=== PATIENT | female | born 1950 | race Caucasian/White ===

== ENCOUNTER → 2017-06-11 | Outpatient (CLI) | payer OTHER | LOC: M.RAD 12:27 | DX: Z12.31 Encounter for screening mammogram for malignant neoplasm of breast (principal) ==

== ENCOUNTER → 2018-04-28 | Outpatient (CLI) | payer MEDICARE, OTHER | LOC: M.RAD 10:50 | DX: S22.9XXD Fracture of bony thorax, part unspecified, subsequent encounter for fracture with routine healing (principal); M43.24 Fusion of spine, thoracic region; X58.XXXD Exposure to other specified factors, subsequent encounter ==

== ENCOUNTER → 2018-06-12 | Outpatient (CLI) | payer MEDICARE, BC | LOC: M.RAD 12:38 | DX: Z12.31 Encounter for screening mammogram for malignant neoplasm of breast (principal) ==

== ENCOUNTER → 2019-06-18 | Outpatient (CLI) | payer MEDICARE, OTHER | LOC: M.RAD 09:18 | DX: Z12.31 Encounter for screening mammogram for malignant neoplasm of breast (principal) ==

== ENCOUNTER → 2020-07-04 | Outpatient (CLI) | payer MEDICARE, OTHER | LOC: M.RAD 13:38 | PROVIDERS: ATTEND Obstetrics & Gynecology Gynecology | DX: Z12.31 Encounter for screening mammogram for malignant neoplasm of breast (principal) ==

== ENCOUNTER → 2020-08-30 | Outpatient (CLI) | payer MEDICARE, OTHER ==
[2020-08-30 09:55] LABS: ALBUMIN 3.8 g/dL (3.4-5.0); ALKALINE PHOSPHATASE 73 U/L (46-116); ANION GAP 9 mmol/L (7-16); BUN 14 mg/dL (7-18); CALCIUM 9.2 mg/dL (8.5-10.1); CHLORIDE 103 mmol/L (98-107); CHOLESTEROL 249 mg/dL (<200); CO2 28 mmol/L (21-32); CREATININE 0.8 mg/dL (0.6-1.3); GLUCOSE 106 mg/dL (70-99); HDL CHOLESTEROL 60 mg/dL (>40); LDL CHOLESTEROL 170 mg/dL (<100); POTASSIUM 4.2 mmol/L (3.5-5.1); SGOT 18 U/L (15-37); SGPT 27 U/L (30-65); SODIUM 140 mmol/L (136-145); TC:HDL 4.2 Ratio (Not establshd); TOTAL BILIRUBIN 0.4 mg/dL (<0.1-1.0); TOTAL PROTEIN 7.7 g/dL (6.4-8.2); TRIGLYCERIDE 95 mg/dL (<150); VLDL 19 mg/dL (<40)
[2020-08-30 10:02] LABS: SERUM ASSESSMENT Clear
== END ==
LOC: M.LAB 09:03
PROVIDERS: ATTEND Obstetrics & Gynecology Gynecology
DX: E78.5 Hyperlipidemia, unspecified (principal); M81.0 Age-related osteoporosis without current pathological fracture; Z00.00 Encounter for general adult medical examination without abnormal findings

== ENCOUNTER → 2020-10-31 | Outpatient (CLI) | payer MEDICARE, OTHER | LOC: M.LAB 10:00 | PROVIDERS: ATTEND Obstetrics & Gynecology Gynecology | DX: E03.9 Hypothyroidism, unspecified (principal) ==

== ENCOUNTER → 2021-07-05 | Outpatient (CLI) | payer MEDICARE, OTHER | LOC: M.RAD 07:00 | PROVIDERS: ATTEND Obstetrics & Gynecology Gynecology | DX: Z12.31 Encounter for screening mammogram for malignant neoplasm of breast (principal); N64.89 Other specified disorders of breast ==